=== PATIENT | female | born 1995 | race Hispanic/Latino ===

== ENCOUNTER 2023-02-27 09:42 | Inpatient (IN) | payer OTHER ==
[~2023-02-27] VITALS: Ht 160 cm; Wt 70.8 kg
[2023-02-27 10:35] LABS: AMPHET/METH SCREEN,URINE NEGATIVE (NEGATIVE); BARBITURATE SCREEN, URINE NEGATIVE (NEGATIVE); BENZODIAZEPINES SCREEN,URINE NEGATIVE (NEGATIVE); CANNABINOID SCREEN,URINE NEGATIVE (NEGATIVE); COCAINE SCREEN,URINE NEGATIVE (NEGATIVE); OPIATE SCREEN,URINE NEGATIVE (NEGATIVE); PHENCYCLIDINE SCREEN,URINE NEGATIVE (NEGATIVE)
[2023-02-27 10:41] LABS: APPEARANCE,URINE CLEAR (CLEAR); BILIRUBIN,URINE NEGATIVE (NEGATIVE); COLOR,URINE YELLOW (YELLOW); GLUCOSE, URINE (UA) NEGATIVE (NEGATIVE); KETONES,URINE NEGATIVE (NEGATIVE); LEUKOCYTE ESTERASE ,URINE 250 Leu/uL (NEGATIVE); NITRATE,URINE NEGATIVE (NEGATIVE); OCCULT BLOOD,URINE NEGATIVE (NEGATIVE); PROTEIN,URINE 50 mg/dL (NEGATIVE)
[2023-02-27 10:44] LABS: ADD UA MICROSCOPIC YES
[2023-02-27 11:35] LABS: BACTERIA,URINE FEW /HPF (None Seen); MUCUS,URINE RARE LPF (None Seen); SQUAMOUS EPITHELIAL CELL,UR MOD /HPF (0-2)
[2023-02-27] MEDS: LACTATED RINGERS 1000ML 1,000 ML IV PRN ×2 (12:56→17:01)
[2023-02-27] MEDS ORDERED: OXYTOCIN-LR 30 UNITS/500ML 500 ML IV SCH (13:00)
[2023-02-27] MEDS ORDERED: AMPICILLIN 2GM+NS 100ML 100 ML IV SCH (13:00)
[2023-02-27] MEDS ORDERED: PROMETHAZINE HCL 25 MG/ML 1ML AMPULE IM ONE (14:30)
[2023-02-27] MEDS ORDERED: MEPERIDINE-PF 50 MG/ML SYG IVP ONE (14:30)
[2023-02-27 16:03] LABS: MEAN CORPUSCULAR HEMOGLOBIN 30.3 pg (27.0-33.0); MEAN CORPUSCULAR HGB CONC 33.7 g/dL (32.0-36.0); RED BLOOD CELL COUNT(AUTO) 3.89 MIL/uL (4.00-5.50); RED CELL DISTRIBUTION WIDTH 16.9 % (11.0-15.5); WHITE BLOOD COUNT (AUTO) 6.1 K/uL (4.8-10.8)
[2023-02-27] MEDS: AMPICILLIN 1GM+NS 50ML 50 ML IV SCH ×2 (17:01→20:59)
[2023-02-27] MEDS ORDERED: ROPIVACAINE 0.2% 100ML VIAL 100 ML EP SCH (18:00)
[2023-02-27] MEDS ORDERED: LACTATED RINGERS 500 ML 500 ML IV PRN (18:00)
[2023-02-27] MEDS ORDERED: NALOXONE HCL 0.4 MG/1 ML ML IV PRN (18:00)
[2023-02-27] MEDS ORDERED: EPHEDRINE SULFATE 50 MG/ML AMPULE IVP PRN (18:00)
[2023-02-27] MEDS ORDERED: IBUPROFEN 600 MG TABLET ONE (22:14)
[2023-02-27] MEDS ORDERED: DOCUSATE SODIUM 100 MG CAP PO ONE (22:25)
[2023-02-27] MEDS ORDERED: LANOLIN 30GM OINTMENT TP PRN (22:30)
[2023-02-27] MEDS ORDERED: ACETAMINOPHEN 325 MG TAB PO PRN (22:30)
[2023-02-27] MEDS ORDERED: ACETAMINOPHEN WITH CODEINE 1 TAB TAB PO PRN (22:30)
[2023-02-27] MEDS ORDERED: WITCH HAZEL 1 PAD TP PRN (22:30)
[2023-02-27] MEDS ORDERED: BENZOCAINE/LANOLIN/ALOE VERA 60 ML AEROSOL TP PRN (22:30)
[2023-02-27] MEDS ORDERED: DIPH,PERTUSS(ACELL),TET VAC/PF 0.5 ML VIAL IM PRN (22:30)
[2023-02-27] MEDS: OXYTOCIN-LR 30 UNITS/500ML 500 ML IV SCH (23:43)
[2023-02-28] VITALS (7 sets, daily range): BP systolic 94–116; BP diastolic 51–71; PULSE 55–75; RESP 16–20
[2023-02-28] MEDS ORDERED: IRON PO (01:12)
[2023-02-28] MEDS ORDERED: PREN1TAB80 PO (01:12)
[2023-02-28 06:27] LABS: HEMATOCRIT 31.5 % (36-48); MEAN CORPUSCULAR VOLUME 90.8 fL (79-99); RED BLOOD CELL COUNT(AUTO) 3.47 MIL/uL (4.00-5.50); RED CELL DISTRIBUTION WIDTH 16.6 % (11.0-15.5); WHITE BLOOD COUNT (AUTO) 9.8 K/uL (4.8-10.8)
[2023-02-28] MEDS: DOCUSATE SODIUM 100 MG CAP PO SCH ×2 (08:09→20:16)
[2023-02-28] MEDS: IBUPROFEN 600 MG TABLET PO PRN ×2 (08:11→18:42)
[2023-02-28 12:06] LABS: RAPID PLASMA REAGIN NONREACTIVE (NONREACTIVE)
[2023-02-28] MEDS: OXYTOCIN-LR 30 UNITS/500ML 500 ML IV SCH (19:50)
[2023-02-28] MEDS: AMPICILLIN 1GM+NS 50ML 50 ML IV SCH (21:00)
[2023-03-01] MEDS: AMPICILLIN 1GM+NS 50ML 50 ML IV SCH ×4 (01:00→17:00)
[2023-03-01 03:10] VITALS: BP 107/72; PULSE 60; RESP 20
[2023-03-01 07:15] VITALS: BP 117/76; PULSE 67; RESP 16
[2023-03-01] MEDS: DOCUSATE SODIUM 100 MG CAP PO SCH (08:44)
[2023-03-01] MEDS: IBUPROFEN 600 MG TABLET PO PRN (08:45)
[2023-03-01] MEDS ORDERED: IBUP-2088 PO (11:26)
[2023-03-01 12:05] VITALS: BP 106/61; PULSE 61; RESP 16
[2023-03-01 16:08] VITALS: BP 104/68; PULSE 63; RESP 16
== END 2023-03-01 17:30 | disposition home or self-care (01) | DRG 807 ==
LOC: EDH 09:42 → OBSVTOIN 09:43 → LDH 09:43 → WSH 02-28 00:10
PROVIDERS: ADMIT Obstetrics & Gynecology; ATTEND Obstetrics & Gynecology
PROC: 10E0XZZ Delivery of Products of Conception, External Approach (ICD-10-PCS; principal; 2023-02-27)
PROC: 0KQM0ZZ Repair Perineum Muscle, Open Approach (ICD-10-PCS; 2023-02-27)
PROC: 3E0R3BZ Introduction of Anesthetic Agent into Spinal Canal, Percutaneous Approach (ICD-10-PCS; 2023-02-27)
PROC: 00HU33Z Insertion of Infusion Device into Spinal Canal, Percutaneous Approach (ICD-10-PCS; 2023-02-27)
PROC: 10907ZC Drainage of Amniotic Fluid, Therapeutic from Products of Conception, Via Natural or Artificial Opening (ICD-10-PCS; 2023-02-27)
DX: O70.1 Second degree perineal laceration during delivery (principal); Z37.0 Single live birth; O48.0 Post-term pregnancy; Z3A.40 40 weeks gestation of pregnancy
CPT/HCPCS: 36415; 76805; 80305; 81001; 85027; 86592; 86701; 86850; 86900; 86901; 87088; 87340; 87390; A4314; A4351; G0378; J0290; J2175; J2550; J2795; J7120